=== PATIENT | male | born 1935 | race Caucasian/White ===

== ENCOUNTER 2018-08-24 15:52 | Observation (INO) ==
[2018-08-24] MEDS ORDERED: ONDANSETRON 4 MG/2 ML VIAL IV PRN (18:14)
[2018-08-24] MEDS ORDERED: GLUCAGON 1 MG VIAL IM PRN (18:14)
[2018-08-24] MEDS ORDERED: DEXTROSE 50% 25 GM/50 ML SYRINGE IV PRN (18:14)
[2018-08-24 19:36] LABS: Basophils % 0.3 % (0.0-0.8); Eosinophils # 0.1 10*3/uL (0.0-0.87); Eosinophils % 1.4 % (0.00-10.9); Hematocrit 39.7 VOL% (42.0-52.0); Hemoglobin 12.9 GM/DL (14.0-18.0); Immature Granulocytes % 0.4 %; Immature Granulocytes Absolute 0.03 #; Lymphocytes # 1.7 10*3/uL (1.4-4.0); Lymphocytes % 21.6 % (21.2-54.2); Mean Corpuscular HGB Conc 32.5 GM/DL (32-36); Mean Corpuscular Hemoglobin 32 PG (27-34); Mean Corpuscular Volume 99.7 FL (87-102); Mean Platelet Volume 9.8 FL (9.6-12.0); Monocytes # 0.7 10*3/uL (0.11-0.8); Monocytes % 8.7 % (1.7-12.7); Neutrophils # 5.4 10*3/uL (1.4-7.4); Neutrophils % 67.6 % (38.7-73.9); Platelet Count 234 T/CUMM (130-400); Red Blood Count 3.98 MC/CUMM (3.8-5.5); Red Cell Distribution Width 12.6 % (9.3-17.3)
[2018-08-24 20:04] LABS: Calcium 9.6 MG/DL (8.5-10.1); Osmolality,Calculated 277.8 MOS/KG (273-304); Potassium 4.5 MMOL/L (3.5-5.1); Risk Ratio 1.84; Thyroid Stimulating Hormone 2.32 uIU/ml (0.358-3.74); VLDL CHOLESTEROL 16.8 MG/DL
[2018-08-24] MEDS: ENOXAPARIN 40 MG/0.4 ML SYRINGE SUBCUT SCH (21:32)
[2018-08-24] MEDS: INSULIN REGULAR 100 UNIT/ML SUBCUT SCH (21:33)
[2018-08-24] MEDS: CHOLECALCIFEROL 1,000 UNIT TABLET PO SCH (21:34)
[2018-08-24] MEDS: metFORMIN 500 MG TABLET PO SCH (21:34)
[2018-08-24] MEDS: CARVEDILOL 25 MG TABLET PO SCH (21:34)
[2018-08-24] MEDS: SIMVASTATIN 20 MG TABLET PO SCH (21:34)
[2018-08-24] MEDS: ZALEPLON 5 MG CAPSULE PO PRN (22:05)
[2018-08-25] MEDS: INSULIN REGULAR 100 UNIT/ML SUBCUT SCH ×4 (07:35→21:12)
[2018-08-25] MEDS: metFORMIN 500 MG TABLET PO SCH ×2 (08:40→21:11)
[2018-08-25] MEDS: MULTIVITAMIN (CENTRUM) TABLET PO SCH (08:40)
[2018-08-25] MEDS: LISINOPRIL 20 MG TABLET PO SCH (08:40)
[2018-08-25] MEDS: CARVEDILOL 25 MG TABLET PO SCH ×2 (08:41→17:27)
[2018-08-25] MEDS: CYANOCOBALAMIN 500 MCG TABLET PO SCH (08:41)
[2018-08-25] MEDS: MAGNESIUM OXIDE 400 MG TABLET PO SCH (08:41)
[2018-08-25] MEDS: CHOLECALCIFEROL 1,000 UNIT TABLET PO SCH ×2 (08:41→21:12)
[2018-08-25] MEDS: ASPIRIN CHEW 81 MG TABLET PO SCH (08:41)
[2018-08-25 09:36] LABS: Troponin I 0.028 NG/ML (0.00-0.045)
[2018-08-25] MEDS: SIMVASTATIN 20 MG TABLET PO SCH (21:11)
[2018-08-25] MEDS: ZALEPLON 5 MG CAPSULE PO PRN (21:11)
[2018-08-25] MEDS: ENOXAPARIN 40 MG/0.4 ML SYRINGE SUBCUT SCH (21:12)
[2018-08-26 05:11] LABS: Basophils % 0.5 % (0.0-0.8); Eosinophils # 0.2 10*3/uL (0.0-0.87); Eosinophils % 3.1 % (0.00-10.9); Hematocrit 36.4 VOL% (42.0-52.0); Hemoglobin 11.9 GM/DL (14.0-18.0); Immature Granulocytes % 0.3 %; Immature Granulocytes Absolute 0.02 #; Lymphocytes # 1.3 10*3/uL (1.4-4.0); Lymphocytes % 22.5 % (21.2-54.2); Mean Corpuscular HGB Conc 32.7 GM/DL (32-36); Mean Corpuscular Hemoglobin 32 PG (27-34); Mean Corpuscular Volume 97.3 FL (87-102); Mean Platelet Volume 9.9 FL (9.6-12.0); Monocytes # 0.7 10*3/uL (0.11-0.8); Monocytes % 11.7 % (1.7-12.7); Neutrophils # 3.6 10*3/uL (1.4-7.4); Neutrophils % 61.9 % (38.7-73.9); Platelet Count 201 T/CUMM (130-400); Red Blood Count 3.74 MC/CUMM (3.8-5.5); Red Cell Distribution Width 12.7 % (9.3-17.3); White Blood Count 5.7 T/CUMM (4-12)
[2018-08-26 05:40] LABS: Calcium 9.1 MG/DL (8.5-10.1); Osmolality,Calculated 280.4 MOS/KG (273-304); Potassium 3.8 MMOL/L (3.5-5.1)
[2018-08-26 05:43] LABS: Troponin I 0.031 NG/ML (0.00-0.045)
[2018-08-26] MEDS: INSULIN REGULAR 100 UNIT/ML SUBCUT SCH ×2 (08:38→11:38)
[2018-08-26] MEDS: MAGNESIUM OXIDE 400 MG TABLET PO SCH (09:38)
[2018-08-26] MEDS: CARVEDILOL 25 MG TABLET PO SCH (09:38)
[2018-08-26] MEDS: ASPIRIN CHEW 81 MG TABLET PO SCH (09:38)
[2018-08-26] MEDS: metFORMIN 500 MG TABLET PO SCH (09:39)
[2018-08-26] MEDS: MULTIVITAMIN (CENTRUM) TABLET PO SCH (09:39)
[2018-08-26] MEDS: CYANOCOBALAMIN 500 MCG TABLET PO SCH (09:39)
[2018-08-26] MEDS: CHOLECALCIFEROL 1,000 UNIT TABLET PO SCH (09:39)
[2018-08-26] MEDS: LISINOPRIL 20 MG TABLET PO SCH (09:39)
[2018-08-26 11:38] VITALS: BP 128/77
== END 2018-08-26 14:20 | disposition home or self-care (01) ==
LOC: N.2E → SUATTDRO 17:07
PROVIDERS: ADMIT Internal Medicine; ATTEND Internal Medicine

== ENCOUNTER 2018-08-28 06:27 | Inpatient (IN) ==
[2018-08-28] MEDS ORDERED: DIPH/TET/ACEL PERT BOOSTER VACCINE 0.5 ML VIAL IM ONE (06:58)
[2018-08-28 07:29] LABS: Basophils % 0.4 % (0.0-0.8); Eosinophils # 0.2 10*3/uL (0.0-0.87); Eosinophils % 2.3 % (0.00-10.9); Hematocrit 39.9 VOL% (42.0-52.0); Hemoglobin 13.4 GM/DL (14.0-18.0); Immature Granulocytes % 0.8 %; Immature Granulocytes Absolute 0.06 #; Lymphocytes # 1.4 10*3/uL (1.4-4.0); Lymphocytes % 18.1 % (21.2-54.2); Mean Corpuscular HGB Conc 33.6 GM/DL (32-36); Mean Corpuscular Hemoglobin 32 PG (27-34); Mean Corpuscular Volume 96.4 FL (87-102); Mean Platelet Volume 9.4 FL (9.6-12.0); Monocytes # 0.7 10*3/uL (0.11-0.8); Monocytes % 8.5 % (1.7-12.7); Neutrophils # 5.4 10*3/uL (1.4-7.4); Neutrophils % 69.9 % (38.7-73.9); Platelet Count 246 T/CUMM (130-400); Red Blood Count 4.14 MC/CUMM (3.8-5.5); Red Cell Distribution Width 12.6 % (9.3-17.3); White Blood Count 7.7 T/CUMM (4-12)
[2018-08-28 07:46] LABS: Calcium 9.4 MG/DL (8.5-10.1); Osmolality,Calculated 278.8 MOS/KG (273-304)
[2018-08-28 07:57] LABS: PT Patient Result 10.4 SECS; Partial Thromboplastin Time 26.6 SECS (0-40)
[2018-08-28] MEDS ORDERED: ACETAMINOPHEN 325 MG TABLET PO PRN (10:57)
[2018-08-28] MEDS ORDERED: LABETALOL 20 MG/4 ML SYRINGE IV PRN (10:57)
[2018-08-28] MEDS ORDERED: ONDANSETRON 4 MG/2 ML VIAL IV PRN (10:57)
[2018-08-28 11:46] LABS: Risk Ratio 2.11; VLDL CHOLESTEROL 17.2 MG/DL
[2018-08-28] MEDS: PANTOPRAZOLE 40 MG TABLET PO SCH (12:25)
[2018-08-28] MEDS: ASPIRIN EC 81 MG TABLET PO SCH (12:25)
[2018-08-28] MEDS: CLOPIDOGREL 75 MG TABLET PO SCH (12:25)
[2018-08-28] MEDS: ENOXAPARIN 40 MG/0.4 ML SYRINGE SUBCUT SCH (12:25)
[2018-08-28] MEDS: SODIUM CHLORIDE 0.9% 1,000 ML IV SCH (12:26)
[2018-08-28] MEDS ORDERED: DEXTROSE 50% 25 GM/50 ML SYRINGE IV PRN (14:33)
[2018-08-28] MEDS ORDERED: GLUCAGON 1 MG VIAL IM PRN (14:33)
[2018-08-28] MEDS: INSULIN LISPRO 100 UNIT/ML SUBCUT SCH ×2 (17:58→21:18)
[2018-08-28] MEDS: CARVEDILOL 12.5 MG TABLET PO SCH (18:13)
[2018-08-28 19:50] LABS: Barbiturates Screen,Urine Negative (Negative); Benzodiazepines Screen,Urine Negative (Negative); Cannabinoid Screen,Urine Negative (Negative); Opiate Screen,Urine Negative (Negative); Phencyclidine Screen,Urine Negative (Negative)
[2018-08-28 19:52] LABS: Apearance,Urine CLEAR (Clear); Bilirubin,Urine Negative (Negative); Blood, Urine Negative (Negative); Glucose,Urine (UA) Negative (Negative); Ketones,Urine 5 mg/dL (Negative); Nitrite,Urine Negative (Negative); Protein,Urine Negative; RBC,Urine 3 /HPF (0-4); Urine Color Straw (Yellow); Urine Specific Gravity 1.029 (1.001-1.035); Urine Urobilinogen < 2.0 EU/DL (0.2-1.0)
[2018-08-28] MEDS: ATORVASTATIN 80 MG TABLET PO SCH (21:30)
[2018-08-29] MEDS: SODIUM CHLORIDE 0.9% 1,000 ML IV SCH (00:09)
[2018-08-29 05:16] LABS: Basophils # 0.1 10*3/uL (0.0-0.2); Basophils % 0.6 % (0.0-0.8); Eosinophils # 0.4 10*3/uL (0.0-0.87); Eosinophils % 4.5 % (0.00-10.9); Hematocrit 39.2 VOL% (42.0-52.0); Hemoglobin 13.1 GM/DL (14.0-18.0); Immature Granulocytes % 0.4 %; Immature Granulocytes Absolute 0.03 #; Lymphocytes # 1.3 10*3/uL (1.4-4.0); Lymphocytes % 16.1 % (21.2-54.2); Mean Corpuscular HGB Conc 33.4 GM/DL (32-36); Mean Corpuscular Hemoglobin 32 PG (27-34); Mean Platelet Volume 9.6 FL (9.6-12.0); Monocytes # 0.7 10*3/uL (0.11-0.8); Monocytes % 8.5 % (1.7-12.7); Neutrophils # 5.4 10*3/uL (1.4-7.4); Neutrophils % 69.9 % (38.7-73.9); Platelet Count 269 T/CUMM (130-400); Red Blood Count 4.04 MC/CUMM (3.8-5.5); Red Cell Distribution Width 12.7 % (9.3-17.3); White Blood Count 7.8 T/CUMM (4-12)
[2018-08-29 05:35] LABS: Calcium 9.2 MG/DL (8.5-10.1); Osmolality,Calculated 279.8 MOS/KG (273-304); Potassium 4.1 MMOL/L (3.5-5.1)
[2018-08-29] MEDS: CARVEDILOL 12.5 MG TABLET PO SCH ×2 (10:00→17:42)
[2018-08-29] MEDS: CLOPIDOGREL 75 MG TABLET PO SCH (10:00)
[2018-08-29] MEDS: PANTOPRAZOLE 40 MG TABLET PO SCH (10:00)
[2018-08-29] MEDS: INSULIN LISPRO 100 UNIT/ML SUBCUT SCH ×4 (10:00→21:18)
[2018-08-29] MEDS: ASPIRIN EC 81 MG TABLET PO SCH (10:00)
[2018-08-29] MEDS: ENOXAPARIN 40 MG/0.4 ML SYRINGE SUBCUT SCH (10:11)
[2018-08-29] MEDS: ATORVASTATIN 80 MG TABLET PO SCH (20:52)
[2018-08-30] MEDS ORDERED: ZALEPLON 5 MG CAPSULE PO ONE (00:46)
[2018-08-30] MEDS: SODIUM CHLORIDE 0.9% 1,000 ML IV SCH (02:18)
[2018-08-30 05:00] LABS: Basophils % 0.4 % (0.0-0.8); Eosinophils # 0.3 10*3/uL (0.0-0.87); Eosinophils % 4.8 % (0.00-10.9); Hematocrit 38.2 VOL% (42.0-52.0); Hemoglobin 12.2 GM/DL (14.0-18.0); Immature Granulocytes % 0.6 %; Immature Granulocytes Absolute 0.04 #; Lymphocytes # 1.7 10*3/uL (1.4-4.0); Lymphocytes % 24.2 % (21.2-54.2); Mean Corpuscular HGB Conc 31.9 GM/DL (32-36); Mean Corpuscular Hemoglobin 32 PG (27-34); Mean Corpuscular Volume 98.7 FL (87-102); Mean Platelet Volume 9.7 FL (9.6-12.0); Monocytes # 0.8 10*3/uL (0.11-0.8); Monocytes % 11.2 % (1.7-12.7); Neutrophils # 4.1 10*3/uL (1.4-7.4); Neutrophils % 58.8 % (38.7-73.9); Platelet Count 236 T/CUMM (130-400); Red Blood Count 3.87 MC/CUMM (3.8-5.5); Red Cell Distribution Width 12.9 % (9.3-17.3); White Blood Count 6.9 T/CUMM (4-12)
[2018-08-30 05:23] LABS: Calcium 8.9 MG/DL (8.5-10.1); Osmolality,Calculated 281.7 MOS/KG (273-304); Potassium 3.9 MMOL/L (3.5-5.1)
[2018-08-30] MEDS: INSULIN LISPRO 100 UNIT/ML SUBCUT SCH ×2 (08:13→11:06)
[2018-08-30] MEDS: CLOPIDOGREL 75 MG TABLET PO SCH (09:42)
[2018-08-30] MEDS: CARVEDILOL 12.5 MG TABLET PO SCH (09:42)
[2018-08-30] MEDS: ENOXAPARIN 40 MG/0.4 ML SYRINGE SUBCUT SCH (09:42)
[2018-08-30] MEDS: ASPIRIN EC 81 MG TABLET PO SCH (09:42)
[2018-08-30] MEDS: PANTOPRAZOLE 40 MG TABLET PO SCH (09:42)
[2018-08-30 11:28] VITALS: BP 146/80
== END 2018-08-30 12:08 | DRG 65 ==
LOC: N.ED 06:27 → N.EDINP 09:26 → N.2E 11:21
PROVIDERS: ADMIT Internal Medicine; ATTEND Internal Medicine

== ENCOUNTER 2019-07-13 10:17 | Inpatient (IN) ==
[2019-07-13] MEDS ORDERED: SODIUM CHLORIDE 0.9% 1,000 ML IV STA (10:45)
[2019-07-13] MEDS ORDERED: PANTOPRAZOLE 40 MG VIAL IV STA (10:45)
[2019-07-13 10:59] LABS: Basophils % 0.2 % (0.0-0.8); Eosinophils # 0.1 10*3/uL (0.0-0.87); Eosinophils % 0.5 % (0.00-10.9); Hemoglobin 8.4 GM/DL (14.0-18.0); Immature Granulocytes Absolute 0.11 #; Lymphocytes # 2.4 10*3/uL (1.4-4.0); Lymphocytes % 22.1 % (21.2-54.2); Mean Corpuscular HGB Conc 32.3 GM/DL (32-36); Mean Corpuscular Volume 101.2 FL (87-102); Monocytes % 7.3 % (1.7-12.7); Neutrophils % 68.9 % (38.7-73.9); Platelet Count 269 T/CUMM (130-400); Red Blood Count 2.57 MC/CUMM (3.8-5.5); Red Cell Distribution Width 12.6 % (9.3-17.3)
[2019-07-13] MEDS ORDERED: SODIUM CHLORIDE 0.9% 1,000 ML IV PRN (11:14)
[2019-07-13 11:23] LABS: Albumin 2.8 G/DL (3.4-5.0); Bilirubin,Total 0.7 MG/DL (0.2-1.0); Osmolality,Calculated 293.8 MOS/KG (273-304); Total Protein 5.3 G/DL (6.4-8.3)
[2019-07-13 11:30] LABS: INR 1.1; PT Patient Result 12.1 SECS (9.6-12.2)
[2019-07-13] MEDS ORDERED: ONDANSETRON 4 MG/2 ML VIAL IV PRN (12:54)
[2019-07-13] MEDS ORDERED: ACETAMINOPHEN 325 MG TABLET PO PRN (12:54)
[2019-07-13] MEDS ORDERED: ALBUTEROL 2.5 MG/3 ML NEB RESP TX PRN (12:54)
[2019-07-13] MEDS ORDERED: BISACODYL 5 MG TABLET PO PRN (12:54)
[2019-07-13] MEDS ORDERED: GLUCAGON 1 MG VIAL IM PRN (13:08)
[2019-07-13 13:30] LABS: % Iron Saturation 61.5 % (18-50); Ferritin 17.3 ng/ml (26-388)
[2019-07-13 13:31] LABS: Risk Ratio 1.9; VLDL CHOLESTEROL 20.4 MG/DL
[2019-07-13] MEDS ORDERED: DEXTROSE 10% 25 GM/250 ML BAG IV PRN (13:36)
[2019-07-13] MEDS: SODIUM CHLORIDE 0.9% 1,000 ML IV SCH (14:39)
[2019-07-13] MEDS: PANTOPRAZOLE 40 MG VIAL IV SCH (14:39)
[2019-07-13 15:23] LABS: Apearance,Urine CLEAR (Clear); Bilirubin,Urine Negative (Negative); Blood, Urine Negative (Negative); Glucose,Urine (UA) >=500 mg/dL (Negative); Hyaline Casts,Urine 4 /LPF (0-3); Ketones,Urine 20 mg/dL (Negative); Mucus,Urine Occasional /LPF (Occasional); Nitrite,Urine Negative (Negative); Protein,Urine Negative; RBC,Urine 1 /HPF (0-4); Urine Color Straw (Yellow); Urine Specific Gravity 1.015 (1.001-1.035); Urine Urobilinogen < 2.0 EU/DL (0.2-1.0); WBC,Urine <1 /HPF (0-6)
[2019-07-13] MEDS: INSULIN LISPRO 100 UNIT/ML SUBCUT SCH ×2 (16:30→22:19)
[2019-07-13] MEDS ORDERED: MAGNESIUM SULF RIDER 4 GM in PREMIX 1 EACH IV PRN (17:14)
[2019-07-13] MEDS ORDERED: MAGNESIUM SULF RIDER 2 GM in PREMIX 1 EACH IV PRN (17:14)
[2019-07-13 21:46] LABS: Hematocrit 31.7 VOL% (42.0-52.0)
[2019-07-13 21:49] LABS: Hemoglobin 10.5 GM/DL (14.0-18.0)
[2019-07-14] MEDS ORDERED: diphenhydrAMINE CAP 25 MG CAPSULE PO PRN (01:35)
[2019-07-14] MEDS: PANTOPRAZOLE 40 MG VIAL IV SCH ×3 (01:48→21:39)
[2019-07-14 05:23] LABS: Basophils % 0.2 % (0.0-0.8); Eosinophils # 0.2 10*3/uL (0.0-0.87); Hematocrit 27.1 VOL% (42.0-52.0); Hemoglobin 9.1 GM/DL (14.0-18.0); Immature Granulocytes % 0.5 %; Immature Granulocytes Absolute 0.05 #; Lymphocytes # 2.2 10*3/uL (1.4-4.0); Lymphocytes % 23.7 % (21.2-54.2); Mean Corpuscular HGB Conc 33.6 GM/DL (32-36); Mean Corpuscular Volume 95.1 FL (87-102); Mean Platelet Volume 9.6 FL (9.6-12.0); Neutrophils % 65.6 % (38.7-73.9); Platelet Count 194 T/CUMM (130-400); Red Blood Count 2.85 MC/CUMM (3.8-5.5); Red Cell Distribution Width 14.8 % (9.3-17.3); White Blood Count 9.4 T/CUMM (4-12)
[2019-07-14 05:35] LABS: Calcium 8.5 MG/DL (8.5-10.1); Osmolality,Calculated 288.5 MOS/KG (273-304)
[2019-07-14] MEDS: INSULIN LISPRO 100 UNIT/ML SUBCUT SCH ×4 (07:50→22:45)
[2019-07-14] MEDS: SODIUM CHLORIDE 0.9% 1,000 ML IV SCH (15:00)
[2019-07-14] MEDS ORDERED: BISACODYL 5 MG TABLET PO PRN (15:18)
[2019-07-14] MEDS ORDERED: ONDANSETRON 4 MG/2 ML VIAL IV PRN (15:18)
[2019-07-14] MEDS ORDERED: ACETAMINOPHEN 325 MG TABLET PO PRN (15:18)
[2019-07-14] MEDS ORDERED: GLUCAGON 1 MG VIAL IM PRN (15:20)
[2019-07-14] MEDS ORDERED: ALBUTEROL 2.5 MG/3 ML NEB RESP TX PRN (15:20)
[2019-07-14] MEDS ORDERED: MAGNESIUM SULF RIDER 4 GM in PREMIX 1 EACH IV PRN (15:20)
[2019-07-14] MEDS ORDERED: MAGNESIUM SULF RIDER 2 GM in PREMIX 1 EACH IV PRN (15:20)
[2019-07-14] MEDS ORDERED: DEXTROSE 10% 25 GM/250 ML BAG IV PRN (15:20)
[2019-07-14] MEDS ORDERED: SODIUM CHLORIDE 0.9% 1,000 ML IV SCH (15:30)
[2019-07-14] MEDS ORDERED: DOCUSATE SODIUM 100 MG CAPSULE PO PRN (21:40)
[2019-07-14] MEDS: ASCORBIC ACID 500 MG TABLET PO SCH (22:39)
[2019-07-14] MEDS: ATORVASTATIN 40 MG TABLET PO SCH (22:39)
[2019-07-14] MEDS: diphenhydrAMINE CAP 25 MG CAPSULE PO PRN (22:45)
[2019-07-15 06:20] LABS: Basophils % 0.3 % (0.0-0.8); Eosinophils # 0.3 10*3/uL (0.0-0.87); Eosinophils % 2.9 % (0.00-10.9); Hematocrit 25.9 VOL% (42.0-52.0); Hemoglobin 8.6 GM/DL (14.0-18.0); Immature Granulocytes % 0.6 %; Immature Granulocytes Absolute 0.06 #; Lymphocytes % 18.9 % (21.2-54.2); Mean Corpuscular HGB Conc 33.2 GM/DL (32-36); Mean Corpuscular Volume 95.6 FL (87-102); Mean Platelet Volume 9.8 FL (9.6-12.0); Monocytes % 8.3 % (1.7-12.7); Platelet Count 183 T/CUMM (130-400); Red Blood Count 2.71 MC/CUMM (3.8-5.5); Red Cell Distribution Width 14.7 % (9.3-17.3); White Blood Count 10.3 T/CUMM (4-12)
[2019-07-15 06:37] LABS: Calcium 8.5 MG/DL (8.5-10.1); Osmolality,Calculated 285.4 MOS/KG (273-304)
[2019-07-15] MEDS: INSULIN LISPRO 100 UNIT/ML SUBCUT SCH ×4 (09:19→20:56)
[2019-07-15] MEDS: PANTOPRAZOLE 40 MG VIAL IV SCH ×2 (09:22→20:53)
[2019-07-15] MEDS: ASCORBIC ACID 500 MG TABLET PO SCH ×2 (09:23→20:51)
[2019-07-15] MEDS: carvediloL 25 MG TABLET PO SCH ×2 (10:53→17:00)
[2019-07-15] MEDS: lisinopriL 20 MG TABLET PO SCH (10:53)
[2019-07-15] MEDS ORDERED: MAGNESIUM HYDROXIDE SUSP 30 ML UDCUP PO PRN (11:05)
[2019-07-15] MEDS: POLYETHYLENE GLYCOL POWDER 17 GM PACK PO SCH (12:29)
[2019-07-15] MEDS: DOCUSATE SODIUM 100 MG CAPSULE PO SCH ×2 (14:37→20:52)
[2019-07-15] MEDS: ATORVASTATIN 40 MG TABLET PO SCH (20:51)
[2019-07-16 05:59] LABS: Basophils % 0.2 % (0.0-0.8); Eosinophils # 0.2 10*3/uL (0.0-0.87); Eosinophils % 1.9 % (0.00-10.9); Hematocrit 26.5 VOL% (42.0-52.0); Hemoglobin 8.8 GM/DL (14.0-18.0); Immature Granulocytes % 0.4 %; Immature Granulocytes Absolute 0.04 #; Lymphocytes % 21.7 % (21.2-54.2); Mean Corpuscular HGB Conc 33.2 GM/DL (32-36); Mean Corpuscular Volume 97.1 FL (87-102); Mean Platelet Volume 9.9 FL (9.6-12.0); Monocytes % 8.7 % (1.7-12.7); Neutrophils % 67.1 % (38.7-73.9); Platelet Count 209 T/CUMM (130-400); Red Blood Count 2.73 MC/CUMM (3.8-5.5); Red Cell Distribution Width 14.1 % (9.3-17.3); White Blood Count 9.2 T/CUMM (4-12)
[2019-07-16 06:17] LABS: Calcium 8.6 MG/DL (8.5-10.1); Osmolality,Calculated 276.8 MOS/KG (273-304)
[2019-07-16] MEDS: INSULIN LISPRO 100 UNIT/ML SUBCUT SCH ×4 (07:46→20:43)
[2019-07-16] MEDS: PANTOPRAZOLE 40 MG VIAL IV SCH (08:43)
[2019-07-16] MEDS: POLYETHYLENE GLYCOL POWDER 17 GM PACK PO SCH (08:43)
[2019-07-16] MEDS: carvediloL 25 MG TABLET PO SCH ×2 (08:44→17:13)
[2019-07-16] MEDS: DOCUSATE SODIUM 100 MG CAPSULE PO SCH ×2 (08:44→20:40)
[2019-07-16] MEDS: lisinopriL 20 MG TABLET PO SCH (08:44)
[2019-07-16] MEDS: ASCORBIC ACID 500 MG TABLET PO SCH ×2 (08:44→20:39)
[2019-07-16] MEDS ORDERED: DOCUSATE SODIUM 100 MG CAPSULE PO SCH (09:00)
[2019-07-16] MEDS: PANTOPRAZOLE 40 MG TABLET PO SCH ×2 (10:21→20:38)
[2019-07-16] MEDS: ATORVASTATIN 40 MG TABLET PO SCH (20:38)
[2019-07-16] MEDS: diphenhydrAMINE CAP 25 MG CAPSULE PO PRN (21:52)
[2019-07-17 05:13] LABS: Basophils % 0.3 % (0.0-0.8); Eosinophils # 0.2 10*3/uL (0.0-0.87); Eosinophils % 2.3 % (0.00-10.9); Hematocrit 25.5 VOL% (42.0-52.0); Hemoglobin 8.5 GM/DL (14.0-18.0); Immature Granulocytes % 0.5 %; Immature Granulocytes Absolute 0.04 #; Lymphocytes # 1.7 10*3/uL (1.4-4.0); Lymphocytes % 22.9 % (21.2-54.2); Mean Corpuscular HGB Conc 33.3 GM/DL (32-36); Mean Corpuscular Volume 97.7 FL (87-102); Mean Platelet Volume 9.6 FL (9.6-12.0); Monocytes % 10.8 % (1.7-12.7); Neutrophils % 63.2 % (38.7-73.9); Platelet Count 197 T/CUMM (130-400); Red Blood Count 2.61 MC/CUMM (3.8-5.5); White Blood Count 7.5 T/CUMM (4-12)
[2019-07-17] MEDS: INSULIN LISPRO 100 UNIT/ML SUBCUT SCH ×4 (08:41→21:16)
[2019-07-17] MEDS: DOCUSATE SODIUM 100 MG CAPSULE PO SCH ×2 (08:41→21:15)
[2019-07-17] MEDS: carvediloL 25 MG TABLET PO SCH ×2 (08:41→17:32)
[2019-07-17] MEDS: PANTOPRAZOLE 40 MG TABLET PO SCH ×2 (08:42→21:15)
[2019-07-17] MEDS: POLYETHYLENE GLYCOL POWDER 17 GM PACK PO SCH (08:42)
[2019-07-17] MEDS: ASCORBIC ACID 500 MG TABLET PO SCH ×2 (08:42→21:15)
[2019-07-17] MEDS: lisinopriL 20 MG TABLET PO SCH (08:42)
[2019-07-17] MEDS: LACTATED RINGERS 1,000 ML IV SCH (08:57)
[2019-07-17] MEDS ORDERED: ETOMIDATE 20 MG/10 ML VIAL IV ONE (09:00)
[2019-07-17] MEDS ORDERED: LIDOCAINE 2% 5 ML VIAL ONE (09:00)
[2019-07-17] MEDS ORDERED: propofoL 200 MG/20 ML VIAL IV ONE (09:00)
[2019-07-17] MEDS: ATORVASTATIN 40 MG TABLET PO SCH (21:15)
[2019-07-17] MEDS: diphenhydrAMINE CAP 25 MG CAPSULE PO PRN (21:15)
[2019-07-18] MEDS: LACTATED RINGERS 1,000 ML IV SCH (08:11)
[2019-07-18] MEDS: INSULIN LISPRO 100 UNIT/ML SUBCUT SCH ×4 (08:11→20:44)
[2019-07-18] MEDS: lisinopriL 20 MG TABLET PO SCH (08:42)
[2019-07-18] MEDS: DOCUSATE SODIUM 100 MG CAPSULE PO SCH ×2 (08:42→20:43)
[2019-07-18] MEDS: ASCORBIC ACID 500 MG TABLET PO SCH ×2 (08:42→20:43)
[2019-07-18] MEDS: POLYETHYLENE GLYCOL POWDER 17 GM PACK PO SCH (08:42)
[2019-07-18] MEDS: carvediloL 25 MG TABLET PO SCH ×2 (08:43→16:40)
[2019-07-18] MEDS: PANTOPRAZOLE 40 MG TABLET PO SCH ×2 (08:43→20:44)
[2019-07-18] MEDS ORDERED: BISACODYL 5 MG TABLET PO ONE (12:00)
[2019-07-18] MEDS ORDERED: POLYETHYLENE GLYCOL POWDER 255 GM BOTTLE PO ONE (15:00)
[2019-07-18] MEDS: ATORVASTATIN 40 MG TABLET PO SCH (20:43)
[2019-07-19 05:45] LABS: PT Patient Result 10.4 SECS (9.6-12.2)
[2019-07-19 05:46] LABS: Calcium 9.2 MG/DL (8.5-10.1); Osmolality,Calculated 277.7 MOS/KG (273-304)
[2019-07-19] MEDS ORDERED: MAGNESIUM CITRATE 300 ML BOTTLE PO ONE (06:00)
[2019-07-19] MEDS: INSULIN LISPRO 100 UNIT/ML SUBCUT SCH ×4 (07:23→21:43)
[2019-07-19] MEDS ORDERED: LIDOCAINE 2% 5 ML VIAL ONE (09:00)
[2019-07-19] MEDS ORDERED: ETOMIDATE 20 MG/10 ML VIAL IV ONE (09:00)
[2019-07-19] MEDS ORDERED: propofoL 200 MG/20 ML VIAL IV ONE (09:00)
[2019-07-19] MEDS: LACTATED RINGERS 1,000 ML IV SCH ×3 (09:12→12:41)
[2019-07-19] MEDS: DOCUSATE SODIUM 100 MG CAPSULE PO SCH ×2 (12:37→21:43)
[2019-07-19] MEDS: POLYETHYLENE GLYCOL POWDER 17 GM PACK PO SCH (12:37)
[2019-07-19] MEDS: carvediloL 25 MG TABLET PO SCH ×2 (14:56→16:26)
[2019-07-19] MEDS: ASCORBIC ACID 500 MG TABLET PO SCH ×2 (14:56→21:42)
[2019-07-19] MEDS: lisinopriL 20 MG TABLET PO SCH (14:58)
[2019-07-19] MEDS: PANTOPRAZOLE 40 MG TABLET PO SCH ×2 (14:58→21:42)
[2019-07-19] MEDS: ATORVASTATIN 40 MG TABLET PO SCH (21:43)
[2019-07-20] MEDS: LACTATED RINGERS 1,000 ML IV SCH (07:52)
[2019-07-20 07:55] VITALS: BP 115/59
[2019-07-20] MEDS: ASCORBIC ACID 500 MG TABLET PO SCH (08:23)
[2019-07-20] MEDS: PANTOPRAZOLE 40 MG TABLET PO SCH (08:24)
[2019-07-20] MEDS: lisinopriL 20 MG TABLET PO SCH (08:24)
[2019-07-20] MEDS: DOCUSATE SODIUM 100 MG CAPSULE PO SCH (08:24)
[2019-07-20] MEDS: carvediloL 25 MG TABLET PO SCH (08:24)
[2019-07-20] MEDS: INSULIN LISPRO 100 UNIT/ML SUBCUT SCH (08:24)
[2019-07-20] MEDS: POLYETHYLENE GLYCOL POWDER 17 GM PACK PO SCH (08:24)
[2019-07-20] MEDS ORDERED: CLARITHROMYCIN 500 MG TABLET PO SCH (21:00)
[2019-07-20] MEDS ORDERED: metroNIDAZOLE 500 MG TABLET PO SCH (21:00)
== END 2019-07-20 12:10 | disposition home or self-care (01) | DRG 813 ==
LOC: EDUNIT# → EDBD → N.ED 10:17 → SUATTDRO 12:54 → N.CC 12:54 → N.TELEN 07-14 15:02
PROVIDERS: ADMIT Internal Medicine; ATTEND Hospitalist

== ENCOUNTER 2019-07-26 11:39 | Inpatient (IN) ==
[2019-07-26] MEDS ORDERED: ONDANSETRON 4 MG/2 ML VIAL IV STA (12:25)
[2019-07-26] MEDS ORDERED: PANTOPRAZOLE 40 MG VIAL IV STA (12:25)
[2019-07-26 12:54] LABS: Basophils % 0.5 % (0.0-0.8); Eosinophils # 0.1 10*3/uL (0.0-0.87); Eosinophils % 1.9 % (0.00-10.9); Hematocrit 26.9 VOL% (42.0-52.0); Hemoglobin 8.6 GM/DL (14.0-18.0); Immature Granulocytes % 0.5 %; Immature Granulocytes Absolute 0.03 #; Lymphocytes # 1.1 10*3/uL (1.4-4.0); Lymphocytes % 19.2 % (21.2-54.2); Mean Corpuscular Volume 97.8 FL (87-102); Mean Platelet Volume 8.8 FL (9.6-12.0); Monocytes % 9.9 % (1.7-12.7); Platelet Count 306 T/CUMM (130-400); Red Blood Count 2.75 MC/CUMM (3.8-5.5); Red Cell Distribution Width 14.1 % (9.3-17.3); White Blood Count 5.9 T/CUMM (4-12)
[2019-07-26 13:02] LABS: PT Patient Result 10.6 SECS (9.6-12.2); Partial Thromboplastin Time 24.7 SECS (20.8-36.0)
[2019-07-26 13:14] LABS: Albumin 3.2 G/DL (3.4-5.0); Bilirubin,Total 0.5 MG/DL (0.2-1.0); Calcium 9.1 MG/DL (8.5-10.1); Osmolality,Calculated 271.2 MOS/KG (273-304); Total Protein 6.1 G/DL (6.4-8.3)
[2019-07-26] MEDS ORDERED: ACETAMINOPHEN 325 MG TABLET PO PRN (15:15)
[2019-07-26] MEDS ORDERED: DOCUSATE SODIUM 100 MG CAPSULE PO PRN (15:15)
[2019-07-26] MEDS ORDERED: ONDANSETRON 4 MG/2 ML VIAL IV PRN (15:15)
[2019-07-26 16:07] LABS: Hematocrit 26.2 VOL% (42.0-52.0); Hemoglobin 8.5 GM/DL (14.0-18.0)
[2019-07-26] MEDS ORDERED: FUROSEMIDE 40 MG/4 ML VIAL IV ONE (16:26)
[2019-07-26 17:15] LABS: Apearance,Urine CLEAR (Clear); Bilirubin,Urine Negative (Negative); Blood, Urine Negative (Negative); Glucose,Urine (UA) Negative (Negative); Ketones,Urine 5 mg/dL (Negative); Mucus,Urine Occasional /LPF (Occasional); Nitrite,Urine Negative (Negative); Protein,Urine Negative; RBC,Urine 1 /HPF (0-4); Urine Color Yellow (Yellow); Urine Specific Gravity 1.012 (1.001-1.035); Urine Urobilinogen < 2.0 EU/DL (0.2-1.0); WBC,Urine 1 /HPF (0-6)
[2019-07-26] MEDS: carvediloL 25 MG TABLET PO SCH (18:15)
[2019-07-26] MEDS: AMOXICILLIN 500 MG CAPSULE PO SCH (21:24)
[2019-07-26] MEDS: CHOLECALCIFEROL 1,000 UNIT TABLET PO SCH (21:24)
[2019-07-26] MEDS: CLARITHROMYCIN 500 MG TABLET PO SCH (21:25)
[2019-07-26] MEDS: PANTOPRAZOLE 40 MG TABLET PO SCH (21:25)
[2019-07-26] MEDS: metroNIDAZOLE 500 MG TABLET PO SCH (21:25)
[2019-07-26 23:17] LABS: Hematocrit 26.6 VOL% (42.0-52.0); Hemoglobin 8.6 GM/DL (14.0-18.0)
[2019-07-27 04:52] LABS: Basophils % 0.5 % (0.0-0.8); Eosinophils # 0.1 10*3/uL (0.0-0.87); Eosinophils % 3.2 % (0.00-10.9); Hematocrit 26.3 VOL% (42.0-52.0); Hemoglobin 8.4 GM/DL (14.0-18.0); Immature Granulocytes % 0.2 %; Immature Granulocytes Absolute 0.01 #; Lymphocytes # 1.2 10*3/uL (1.4-4.0); Lymphocytes % 27.2 % (21.2-54.2); Mean Corpuscular HGB Conc 31.9 GM/DL (32-36); Mean Platelet Volume 9.1 FL (9.6-12.0); Monocytes % 13.2 % (1.7-12.7); Neutrophils % 55.7 % (38.7-73.9); Platelet Count 332 T/CUMM (130-400); Red Blood Count 2.71 MC/CUMM (3.8-5.5); Red Cell Distribution Width 14.1 % (9.3-17.3); White Blood Count 4.4 T/CUMM (4-12)
[2019-07-27 05:21] LABS: Calcium 9.3 MG/DL (8.5-10.1); Osmolality,Calculated 272.8 MOS/KG (273-304)
[2019-07-27] MEDS ORDERED: CYANOCOBALAMIN 100 MCG TABLET PO ONE (08:30)
[2019-07-27] MEDS ORDERED: CHOLECALCIFEROL 1,000 UNIT TABLET PO ONE (08:30)
[2019-07-27] MEDS ORDERED: FUROSEMIDE 40 MG/4 ML VIAL IV SCH (09:00)
[2019-07-27] MEDS: CLARITHROMYCIN 500 MG TABLET PO SCH ×2 (09:12→21:11)
[2019-07-27] MEDS: metroNIDAZOLE 500 MG TABLET PO SCH ×2 (09:12→21:11)
[2019-07-27] MEDS: ASCORBIC ACID 500 MG TABLET PO SCH (09:12)
[2019-07-27] MEDS: lisinopriL 20 MG TABLET PO SCH (09:12)
[2019-07-27] MEDS: PANTOPRAZOLE 40 MG TABLET PO SCH ×2 (09:13→21:11)
[2019-07-27] MEDS: carvediloL 25 MG TABLET PO SCH ×2 (09:14→18:13)
[2019-07-27] MEDS: AMOXICILLIN 500 MG CAPSULE PO SCH ×2 (09:14→21:11)
[2019-07-27] MEDS: MULTIVITAMIN (CENTRUM) TABLET PO SCH (09:14)
[2019-07-27] MEDS: CHOLECALCIFEROL 1,000 UNIT TABLET PO SCH ×2 (09:17→21:12)
[2019-07-27] MEDS: CYANOCOBALAMIN 100 MCG TABLET PO SCH (09:17)
[2019-07-27] MEDS: FUROSEMIDE 40 MG TABLET PO SCH (09:24)
[2019-07-27 15:41] LABS: Hematocrit 27.1 VOL% (42.0-52.0); Hemoglobin 8.5 GM/DL (14.0-18.0)
[2019-07-27] MEDS ORDERED: GLUCAGON 1 MG VIAL IM PRN ×2 (16:37→16:39)
[2019-07-27] MEDS ORDERED: DEXTROSE 10% 250 ML BAG IV PRN (16:37)
[2019-07-27] MEDS ORDERED: DEXTROSE 50% 25 GM/50 ML VIAL IV PRN (16:39)
[2019-07-27] MEDS: INSULIN REGULAR 100 UNIT/ML SUBCUT SCH (21:36)
[2019-07-28] MEDS ORDERED: ZALEPLON 5 MG CAPSULE PO ONE (00:02)
[2019-07-28 05:10] LABS: Basophils % 0.4 % (0.0-0.8); Eosinophils # 0.1 10*3/uL (0.0-0.87); Eosinophils % 2.9 % (0.00-10.9); Hematocrit 26.9 VOL% (42.0-52.0); Hemoglobin 8.9 GM/DL (14.0-18.0); Immature Granulocytes % 0.2 %; Immature Granulocytes Absolute 0.01 #; Lymphocytes # 1.6 10*3/uL (1.4-4.0); Lymphocytes % 32.2 % (21.2-54.2); Mean Corpuscular HGB Conc 33.1 GM/DL (32-36); Mean Corpuscular Volume 95.4 FL (87-102); Mean Platelet Volume 8.9 FL (9.6-12.0); Monocytes % 12.1 % (1.7-12.7); Neutrophils % 52.2 % (38.7-73.9); Platelet Count 332 T/CUMM (130-400); Red Blood Count 2.82 MC/CUMM (3.8-5.5); Red Cell Distribution Width 14.1 % (9.3-17.3); White Blood Count 4.9 T/CUMM (4-12)
[2019-07-28 05:27] LABS: Calcium 9.3 MG/DL (8.5-10.1); Osmolality,Calculated 276.5 MOS/KG (273-304)
[2019-07-28] MEDS ORDERED: LACTATED RINGERS 1,000 ML IV SCH (08:00)
[2019-07-28] MEDS: INSULIN REGULAR 100 UNIT/ML SUBCUT SCH ×4 (08:31→20:48)
[2019-07-28] MEDS ORDERED: propofoL 200 MG/20 ML VIAL IV ONE (09:00)
[2019-07-28] MEDS ORDERED: LIDOCAINE 100 MG/5 ML SYRINGE ONE (09:00)
[2019-07-28] MEDS ORDERED: ETOMIDATE 20 MG/10 ML VIAL IV ONE (09:00)
[2019-07-28] MEDS: carvediloL 25 MG TABLET PO SCH ×2 (16:08→18:57)
[2019-07-28] MEDS: CLARITHROMYCIN 500 MG TABLET PO SCH ×2 (16:09→20:42)
[2019-07-28] MEDS: FUROSEMIDE 40 MG TABLET PO SCH (16:09)
[2019-07-28] MEDS: metroNIDAZOLE 500 MG TABLET PO SCH ×2 (16:09→20:42)
[2019-07-28] MEDS: lisinopriL 20 MG TABLET PO SCH (16:09)
[2019-07-28] MEDS: CYANOCOBALAMIN 100 MCG TABLET PO SCH (16:09)
[2019-07-28] MEDS: AMOXICILLIN 500 MG CAPSULE PO SCH ×2 (16:09→20:42)
[2019-07-28] MEDS: PANTOPRAZOLE 40 MG TABLET PO SCH ×2 (16:09→20:42)
[2019-07-28] MEDS: MULTIVITAMIN (CENTRUM) TABLET PO SCH (16:09)
[2019-07-28] MEDS: CHOLECALCIFEROL 1,000 UNIT TABLET PO SCH ×2 (16:10→20:43)
[2019-07-28] MEDS: ASCORBIC ACID 500 MG TABLET PO SCH (16:10)
[2019-07-28] MEDS ORDERED: MELATONIN 3 MG TABLET PO PRN (19:34)
[2019-07-29 06:18] LABS: Basophils % 0.7 % (0.0-0.8); Eosinophils # 0.1 10*3/uL (0.0-0.87); Eosinophils % 3.1 % (0.00-10.9); Hematocrit 24.5 VOL% (42.0-52.0); Hemoglobin 7.8 GM/DL (14.0-18.0); Immature Granulocytes % 0.2 %; Immature Granulocytes Absolute 0.01 #; Lymphocytes # 1.5 10*3/uL (1.4-4.0); Lymphocytes % 33.1 % (21.2-54.2); Mean Corpuscular HGB Conc 31.8 GM/DL (32-36); Mean Corpuscular Volume 97.6 FL (87-102); Mean Platelet Volume 8.6 FL (9.6-12.0); Monocytes % 13.3 % (1.7-12.7); Neutrophils % 49.6 % (38.7-73.9); Platelet Count 268 T/CUMM (130-400); Red Blood Count 2.51 MC/CUMM (3.8-5.5); Red Cell Distribution Width 13.8 % (9.3-17.3); White Blood Count 4.5 T/CUMM (4-12)
[2019-07-29 07:05] LABS: Calcium 8.6 MG/DL (8.5-10.1); Osmolality,Calculated 279.5 MOS/KG (273-304)
[2019-07-29] MEDS ORDERED: SODIUM CHLORIDE 0.9% 1,000 ML IV PRN (08:45)
[2019-07-29] MEDS: AMOXICILLIN 500 MG CAPSULE PO SCH (09:18)
[2019-07-29] MEDS: CHOLECALCIFEROL 1,000 UNIT TABLET PO SCH (09:19)
[2019-07-29] MEDS: CLARITHROMYCIN 500 MG TABLET PO SCH (09:19)
[2019-07-29] MEDS: CYANOCOBALAMIN 100 MCG TABLET PO SCH (09:20)
[2019-07-29] MEDS: lisinopriL 20 MG TABLET PO SCH (09:20)
[2019-07-29] MEDS: ASCORBIC ACID 500 MG TABLET PO SCH (09:21)
[2019-07-29] MEDS: MULTIVITAMIN (CENTRUM) TABLET PO SCH (09:21)
[2019-07-29] MEDS: metroNIDAZOLE 500 MG TABLET PO SCH (09:21)
[2019-07-29] MEDS: PANTOPRAZOLE 40 MG TABLET PO SCH (09:21)
[2019-07-29] MEDS: FUROSEMIDE 40 MG TABLET PO SCH (09:21)
[2019-07-29] MEDS: carvediloL 25 MG TABLET PO SCH ×2 (09:21→17:12)
[2019-07-29] MEDS: INSULIN REGULAR 100 UNIT/ML SUBCUT SCH ×3 (09:25→17:11)
[2019-07-29 17:18] VITALS: BP 117/63
[2019-07-29 18:09] LABS: Hematocrit 30.4 VOL% (42.0-52.0)
[2019-07-29 18:10] LABS: Hemoglobin 9.8 GM/DL (14.0-18.0)
== END 2019-07-29 19:07 | disposition home or self-care (01) | DRG 378 ==
LOC: N.EDINP 11:39 → N.ED 11:39 → N.4E 16:16
PROVIDERS: ADMIT Internal Medicine; ATTEND Internal Medicine

== ENCOUNTER 2020-04-18 21:34 | Observation (INO) ==
[2020-04-18] MEDS ORDERED: PIPERACILLIN/TAZOBACTAM 3,375 MG in SODIUM CHLORIDE 0.9% 100 ML IV STA (22:39)
[2020-04-18] MEDS ORDERED: ACETAMINOPHEN 500 MG TABLET PO STA (22:39)
[2020-04-18 23:35] LABS: Basophils % 0.2 % (0.0-0.8); Eosinophils % 0.1 % (0.00-10.9); Hematocrit 42.9 VOL% (42.0-52.0); Hemoglobin 14.5 GM/DL (14.0-18.0); Immature Granulocytes % 0.5 %; Immature Granulocytes Absolute 0.07 #; Lymphocytes # 0.8 10*3/uL (1.4-4.0); Mean Corpuscular HGB Conc 33.8 GM/DL (32-36); Mean Corpuscular Volume 98.2 FL (87-102); Mean Platelet Volume 9.3 FL (9.6-12.0); Neutrophils % 88.2 % (38.7-73.9); Platelet Count 218 T/CUMM (130-400); Red Blood Count 4.37 MC/CUMM (3.8-5.5); Red Cell Distribution Width 12.3 % (9.3-17.3); White Blood Count 13.7 T/CUMM (4-12)
[2020-04-18 23:45] LABS: PT Patient Result 10.8 SECS (9.8-11.9)
[2020-04-18 23:52] LABS: Bilirubin,Urine Negative (Negative); Blood, Urine Moderate mg/dL (Negative); Glucose,Urine (UA) >=500 mg/dL (Negative); Hyaline Casts,Urine 3 /LPF (0-3); Ketones,Urine Negative (Negative); Mucus,Urine Occasional /LPF (Occasional); Nitrite,Urine Negative (Negative); Protein,Urine Negative; RBC,Urine 4 /HPF (0-4); Urine Appearance CLEAR (Clear); Urine Color Yellow (Yellow); Urine Specific Gravity 1.021 (1.001-1.035); Urine Urobilinogen < 2.0 EU/DL (0.2-1.0); WBC,Urine <1 /HPF (0-6)
[2020-04-19 00:11] LABS: Albumin 3.9 G/DL (3.4-5.0); Bilirubin,Total 1.5 MG/DL (0.2-1.0); Calcium 9.8 MG/DL (8.5-10.1); Osmolality,Calculated 276.1 MOS/KG (273-304); Total Protein 7.8 G/DL (6.4-8.3)
[2020-04-19 00:53] LABS: Sedimentation Rate-Westergren 13 MM/HR (0-20)
[2020-04-19] MEDS ORDERED: ACETAMINOPHEN 325 MG TABLET PO PRN (02:14)
[2020-04-19] MEDS ORDERED: ALUMINUM/MAGNES/SIMETH MAX STR 30 ML UDCUP PO PRN (02:14)
[2020-04-19] MEDS ORDERED: GLUCAGON 1 MG VIAL IM PRN (02:14)
[2020-04-19] MEDS ORDERED: ZALEPLON 5 MG CAPSULE PO PRN (02:14)
[2020-04-19] MEDS ORDERED: ONDANSETRON 4 MG/2 ML VIAL IV PRN (02:14)
[2020-04-19] MEDS ORDERED: DEXTROSE 50% 25 GM/50 ML VIAL IV PRN (02:14)
[2020-04-19] MEDS ORDERED: MORPHINE 4 MG/1 ML VIAL IV PRN (02:14)
[2020-04-19] MEDS ORDERED: SODIUM CHLORIDE 0.9% 1,000 ML IV SCH (02:30)
[2020-04-19] MEDS: VANCOMYCIN INJ 1,500 MG in SODIUM CHLORIDE 0.9% 500 ML IV SCH ×2 (04:50→17:32)
[2020-04-19 06:02] LABS: Basophils % 0.2 % (0.0-0.8); Eosinophils % 0.1 % (0.00-10.9); Hematocrit 35.7 VOL% (42.0-52.0); Hemoglobin 12.3 GM/DL (14.0-18.0); Immature Granulocytes % 0.5 %; Immature Granulocytes Absolute 0.06 #; Lymphocytes # 1.6 10*3/uL (1.4-4.0); Lymphocytes % 13.1 % (21.2-54.2); Mean Corpuscular HGB Conc 34.5 GM/DL (32-36); Mean Corpuscular Volume 97.3 FL (87-102); Mean Platelet Volume 9.5 FL (9.6-12.0); Neutrophils % 79.1 % (38.7-73.9); Platelet Count 171 T/CUMM (130-400); Red Blood Count 3.67 MC/CUMM (3.8-5.5); Red Cell Distribution Width 12.5 % (9.3-17.3); White Blood Count 12.5 T/CUMM (4-12)
[2020-04-19 06:34] LABS: Albumin 3.2 G/DL (3.4-5.0); Bilirubin,Total 2.3 MG/DL (0.2-1.0); Calcium 9.4 MG/DL (8.5-10.1); Thyroid Stimulating Hormone 2.15 uIU/ml (0.358-3.74); Total Protein 6.4 G/DL (6.4-8.3)
[2020-04-19] MEDS: INSULIN LISPRO 100 UNIT/ML SUBCUT SCH ×4 (08:43→21:58)
[2020-04-19] MEDS: PIPERACILLIN/TAZOBACTAM 3,375 MG in SODIUM CHLORIDE 0.9% 100 ML IV SCH ×2 (08:44→17:31)
[2020-04-19] MEDS: SULFAMETHOX/TRIMETHOPRIM 800-160 MG TABLET PO SCH ×2 (12:20→21:53)
[2020-04-20] MEDS: PIPERACILLIN/TAZOBACTAM 3,375 MG in SODIUM CHLORIDE 0.9% 100 ML IV SCH ×3 (01:58→16:51)
[2020-04-20] MEDS: VANCOMYCIN INJ 1,500 MG in SODIUM CHLORIDE 0.9% 500 ML IV SCH ×2 (05:50→17:01)
[2020-04-20 07:54] LABS: Basophils % 0.3 % (0.0-0.8); Eosinophils # 0.1 10*3/uL (0.0-0.87); Eosinophils % 1.2 % (0.00-10.9); Hematocrit 37.2 VOL% (42.0-52.0); Hemoglobin 12.4 GM/DL (14.0-18.0); Immature Granulocytes % 0.4 %; Immature Granulocytes Absolute 0.04 #; Lymphocytes # 1.5 10*3/uL (1.4-4.0); Lymphocytes % 16.6 % (21.2-54.2); Mean Corpuscular HGB Conc 33.3 GM/DL (32-36); Mean Corpuscular Volume 99.2 FL (87-102); Mean Platelet Volume 9.5 FL (9.6-12.0); Monocytes % 7.5 % (1.7-12.7); Platelet Count 164 T/CUMM (130-400); Red Blood Count 3.75 MC/CUMM (3.8-5.5); Red Cell Distribution Width 12.7 % (9.3-17.3); White Blood Count 9.1 T/CUMM (4-12)
[2020-04-20 08:06] LABS: Calcium 9.3 MG/DL (8.5-10.1); Osmolality,Calculated 272.1 MOS/KG (273-304)
[2020-04-20] MEDS: INSULIN LISPRO 100 UNIT/ML SUBCUT SCH ×4 (08:23→21:26)
[2020-04-20] MEDS: SULFAMETHOX/TRIMETHOPRIM 800-160 MG TABLET PO SCH ×2 (08:27→21:21)
[2020-04-21] MEDS: PIPERACILLIN/TAZOBACTAM 3,375 MG in SODIUM CHLORIDE 0.9% 100 ML IV SCH ×3 (02:18→17:11)
[2020-04-21 06:10] LABS: Basophils % 0.3 % (0.0-0.8); Eosinophils # 0.1 10*3/uL (0.0-0.87); Eosinophils % 1.6 % (0.00-10.9); Hematocrit 35.8 VOL% (42.0-52.0); Hemoglobin 12.1 GM/DL (14.0-18.0); Immature Granulocytes % 0.3 %; Immature Granulocytes Absolute 0.02 #; Lymphocytes # 1.4 10*3/uL (1.4-4.0); Mean Corpuscular HGB Conc 33.8 GM/DL (32-36); Mean Corpuscular Volume 98.4 FL (87-102); Mean Platelet Volume 9.7 FL (9.6-12.0); Monocytes % 8.8 % (1.7-12.7); Platelet Count 161 T/CUMM (130-400); Red Blood Count 3.64 MC/CUMM (3.8-5.5); Red Cell Distribution Width 12.5 % (9.3-17.3); White Blood Count 6.8 T/CUMM (4-12)
[2020-04-21 06:27] LABS: Calcium 9.5 MG/DL (8.5-10.1)
[2020-04-21] MEDS ORDERED: MELATONIN 3 MG TABLET PO PRN (06:55)
[2020-04-21] MEDS: INSULIN LISPRO 100 UNIT/ML SUBCUT SCH ×4 (10:45→20:26)
[2020-04-21] MEDS: FERROUS SULFATE 325 MG TABLET PO SCH (10:46)
[2020-04-21] MEDS: ASCORBIC ACID 500 MG TABLET PO SCH (10:46)
[2020-04-21] MEDS: MULTIVITAMIN (CENTRUM) TABLET PO SCH (10:46)
[2020-04-21] MEDS: SULFAMETHOX/TRIMETHOPRIM 800-160 MG TABLET PO SCH ×2 (10:46→20:24)
[2020-04-21] MEDS: lisinopriL 20 MG TABLET PO SCH (10:46)
[2020-04-21] MEDS: DOCUSATE SODIUM 100 MG CAPSULE PO SCH (10:46)
[2020-04-21] MEDS: CYANOCOBALAMIN 100 MCG TABLET PO SCH (10:47)
[2020-04-21] MEDS: VANCOMYCIN INJ 1,500 MG in SODIUM CHLORIDE 0.9% 500 ML IV SCH (14:06)
[2020-04-21] MEDS ORDERED: hydrALAZINE 20 MG/1 ML VIAL IV PRN (20:56)
[2020-04-21] MEDS ORDERED: ATORVASTATIN 40 MG TABLET PO SCH (21:00)
[2020-04-22] MEDS: PIPERACILLIN/TAZOBACTAM 3,375 MG in SODIUM CHLORIDE 0.9% 100 ML IV SCH ×2 (02:39→08:54)
[2020-04-22 05:39] LABS: Basophils % 0.5 % (0.0-0.8); Eosinophils # 0.2 10*3/uL (0.0-0.87); Eosinophils % 2.7 % (0.00-10.9); Hematocrit 36.7 VOL% (42.0-52.0); Hemoglobin 12.7 GM/DL (14.0-18.0); Immature Granulocytes % 0.2 %; Immature Granulocytes Absolute 0.01 #; Lymphocytes # 1.3 10*3/uL (1.4-4.0); Lymphocytes % 20.9 % (21.2-54.2); Mean Corpuscular HGB Conc 34.6 GM/DL (32-36); Mean Corpuscular Volume 96.8 FL (87-102); Mean Platelet Volume 9.4 FL (9.6-12.0); Monocytes % 10.6 % (1.7-12.7); Neutrophils % 65.1 % (38.7-73.9); Platelet Count 211 T/CUMM (130-400); Red Blood Count 3.79 MC/CUMM (3.8-5.5); Red Cell Distribution Width 12.3 % (9.3-17.3); White Blood Count 6.3 T/CUMM (4-12)
[2020-04-22 06:07] LABS: Calcium 9.8 MG/DL (8.5-10.1)
[2020-04-22] MEDS: VANCOMYCIN INJ 1,500 MG in SODIUM CHLORIDE 0.9% 500 ML IV SCH (06:41)
[2020-04-22] MEDS: INSULIN LISPRO 100 UNIT/ML SUBCUT SCH ×2 (07:45→12:59)
[2020-04-22] MEDS: DOCUSATE SODIUM 100 MG CAPSULE PO SCH (08:53)
[2020-04-22] MEDS: ASCORBIC ACID 500 MG TABLET PO SCH (08:53)
[2020-04-22] MEDS: lisinopriL 20 MG TABLET PO SCH (08:53)
[2020-04-22] MEDS: SULFAMETHOX/TRIMETHOPRIM 800-160 MG TABLET PO SCH (08:53)
[2020-04-22] MEDS: MULTIVITAMIN (CENTRUM) TABLET PO SCH (08:54)
[2020-04-22] MEDS: FERROUS SULFATE 325 MG TABLET PO SCH (08:55)
[2020-04-22] MEDS: CYANOCOBALAMIN 100 MCG TABLET PO SCH (08:55)
[2020-04-22 14:09] VITALS: BP 136/72
== END 2020-04-22 14:11 | disposition home or self-care (01) ==
LOC: N.EDINP 21:34 → N.ED 21:34 → SUATTDRO 04-19 01:17 → N.TELEN 04-19 02:36
PROVIDERS: ADMIT Internal Medicine; ATTEND Internal Medicine Geriatric Medicine